=== PATIENT | female | born 1955 | race Caucasian/White ===

== ENCOUNTER 2022-05-18 16:26 | Emergency (ER) | payer MEDICARE, BC, SELFPAY ==
[2022-05-18 16:29] VITALS: BP 156/94; PULSE 81; RESP 14; TEMP 36.8; O2SAT 95; BMI 23.1
[2022-05-18 16:39] VITALS: O2SAT 98
--- NOTE | 2022-05-18 16:42 | CT_ITS ---
EXAM: CT ANGIOGRAPHY CHEST WITHOUT AND WITH INTRAVENOUS CONTRAST CLINICAL INDICATION: dyspnea, elevated d-dimer -- Technologist Notes Shortness of breath, history of endometrial and colon cancer. TECHNIQUE: Helically acquired angiography images were obtained of the chest without and with intravenous contrast. This CT exam was performed using one or more of the following dose reduction techniques: automated exposure control, adjustment of the mA and/or kV according to patient size, and/or use of iterative reconstruction technique. This report was created using [employer] report generation technology. MIP reconstructed images were created and reviewed. CONTRAST: IV 100mL Isovue-370 RADIATION DOSE: CTDIvol = 5.55 mGy, DLP = 188.51 mGy-cm COMPARISON: None. FINDINGS: PULMONARY ARTERIES: No demonstrated pulmonary embolism or arterial dissection. AORTA: Unremarkable. Normal in caliber. No evidence of dissection. GREAT VESSELS OF AORTIC ARCH: Unremarkable. Normal in caliber. No evidence of dissection. LUNGS AND PLEURAL SPACES: Unremarkable. No mass. No consolidation or edema. No pleural effusion or thickening. No pneumothorax. HEART: Unremarkable. Heart size is normal. No pericardial effusion. No signs of right heart strain, ratio of right ventricle to left ventricle measures less than 1. MEDIASTINUM: Unremarkable. No mediastinal or hilar adenopathy. Esophagus is unremarkable. No hiatal hernia. THYROID: Unremarkable. No thyroid lesions. BONES/JOINTS: Unremarkable. No suspicious lytic or blastic abnormality. GALLBLADDER AND BILE DUCTS: The gallbladder is surgically absent. PANCREAS: There is a cystic lesion extending from the region of the left lobe of the liver, extending around the pancreas and stomach. The mass measures 11 x 6 x 5 cm. This is only partially visualized on the CT of the chest and a cystic neoplasm cannot be excluded. Differential would include sequela of pancreatitis. CT/CTA Chest W/WO Contrast IMPRESSION: 1. No demonstrated pulmonary embolism or arterial dissection. 2. There is a cystic lesion extending from the region of the left lobe of the liver, extending around the pancreas and stomach. The mass measures 11 x 6 x 5 cm. This is only partially visualized on the CT of the chest and a cystic neoplasm cannot be excluded. Differential would include sequela of pancreatitis. Electronically Signed: Luis Swift MD at 17:49 EDT ,
--- NOTE | 2022-05-18 16:42 | EKG12_ITS ---
Test Reason : SOB Blood Pressure : / mmHG Vent. Rate : 062 BPM Atrial Rate : 062 BPM P-R Int : 134 ms QRS Dur : 088 ms QT Int : 416 ms P-R-T Axes : 054 -04 037 degrees QTc Int : 422 ms Normal sinus rhythm Normal ECG Confirmed by QUE RIVERO, LINDA ([id number]), newspaper editor managing ROCIO ALDANA ([id number]) on 05/20/2022 11:37:50 AM Referred By: YESSICA Confirmed By:LINDA GREY MD
--- NOTE | 2022-05-18 16:45 | EDS_ITS ---
HPI History of Present Illness Chief Complaint: Shortness of Breath Informant: patient Onset/Context/Timing Onset: Month(s) Timing: Waxes and wanes Current Severity: Mild Maximum Severity: Moderate Narrative Narrative: Patient presents from Dr. Vigil's office for elevated D-dimer. She is a history of endometrial cancer and is currently undergoing treatment. When he saw her today she complained of several month history of shortness of breath when she is raising her arms above her head. Lately she has noted some shortness of breath with exertion as simple as walking. In light of this lab work was obtained including a D-dimer. D-dimer is elevated and she is sent to the ER for a CTA of her chest. [facility] Medical History Colon cancer Endometrial cancer Hypothyroidism PVCs (premature ventricular contractions) Home Medications acetaminophen 325 mg tablet 975 mg PO Q6H 05/18/22 [History Last Taken Unknown] docusate sodium 100 mg capsule (Colace) 100 mg PO DAILY PRN Constipation 05/18/22 [History Last Taken Unknown] ezetimibe 10 mg tablet 10 mg PO DAILY 05/18/22 [History Last Taken Unknown] famotidine 20 mg tablet (Pepcid) 20 mg PO DAILY 05/18/22 [History Last Taken Unknown] lenvatinib 4 mg capsule 14 mg PO DAILY 05/18/22 [History Last Taken Unknown] loratadine 10 mg tablet (Claritin) 10 mg PO DAILY 05/18/22 [History Last Taken Unknown] omega-3 fatty acids-fish oil 684 mg-1,200 mg capsule,delayed release 1 cap PO DAILY 05/18/22 [History Last Taken Unknown] thyroid (pork) 90 mg tablet (PLANETARIUM TECHNICIAN Thyroid) 90 mg PO DAILY 05/18/22 [History Last Taken Unknown] Allergy/AdvReac Type Severity Reaction Status Date / Time azithromycin AdvReac Nausea/Vom/ Verified 05/18/22 16:29 Diarrhea Vvjtuhe-FHF-YtO Reductase AdvReac Other Verified 05/18/22 16:29 Inhibitor Social History Smoking Status: Never smoker ROS ROS ED Constitutional Constitutional ED: Denies chills or fever(s) Eyes Eyes: Denies change in vision or discharge from eye(s) ENT ENT ED: Denies discharge from eye(s), rhinorrhea or sore throat Cardiovascular Cardiovascular: Denies chest pain or palpitations Respiratory/Chest Respiratory/Chest: Reports dyspnea; Denies cough Gastrointestinal Gastrointestinal: Denies abdominal pain, diarrhea, nausea or vomiting Genitourinary Genitourinary ED: Denies difficulty urinating or dysuria Musculoskeletal Musculoskeletal: Denies back pain or extremity pain Integumentary Denies Abrasions or rash Neurologic Neurologic: Denies headache(s) or weakness Allergic/Immunologic Allergic/Immunologic ED: Denies lip swelling or urticaria EXAM Physical Exam Const Vital Signs: 05/18/22 16:29 05/18/22 16:39 Temperature 98.2 F Temperature Source Temporal Pulse Rate 81 Respiratory Rate 14 Respiratory Effort Short of Breath Respiratory Depth Normal Respiratory Pattern Normal Blood Pressure 156/94 H Blood Pressure Mean 114 Pulse Ox 95 Oxygen Delivery Method Room Air Room Air Positive well nourished and well developed General Appearance ED: well developed HEENT Reports normocephalic and head/scalp atraumatic Eyes PERRL and EOMs intact bilaterally Neck supple Chest Wall inspection of chest normal and palpation of chest normal Resp normal respiratory effort and clear to auscultation bilaterally Cardio regular rate and regular rhythm GI normal to inspection, nondistended, normoactive bowel sounds Palpation: soft Extremity normal to inspection Neuro oriented x3 and no sensory deficits noted Sensorium / Orientation: alert Motor Exam: strength 5/5 throughout Psych mental status grossly normal Skin no rashes or lesions noted MDM MDM MDM Narrative Medical decision making narrative: Patient's lab work from [facility] is reviewed. BNP and troponin are added along with an EKG. CTA of the chest is ordered. Lab Data Attestation: I reviewed the patient's lab results. Labs: Laboratory Results - last 24 hr 05/18/22 05/18/22 16:54 16:54 Troponin I High Sens 6 B-Natriuretic Peptide 25.9 Radiography Diagnostic Testing: Clinical Impression(s) from Imaging Studies Chest CTA 05/18/22 16:42 IMPRESSION: 1. No demonstrated pulmonary embolism or arterial dissection. 2. There is a cystic lesion extending from the region of the left lobe of the liver, extending around the pancreas and stomach. The mass measures 11 x 6 x 5 cm. This is only partially visualized on the CT of the chest and a cystic neoplasm cannot be excluded. Differential would include sequela of pancreatitis. Electronically Signed: Luis Swift MD at 17:49 EDT , EKG Initial EKG: Attestation: I personally reviewed and interpreted this EKG as follows: Interpretation: Sinus Rhythm (Sinus at 62 with no acute ischemia.) Treatment and Re-Evaluation Narrative: Repeat evaluation patient resting comfortably. Vitals are normal. Test results discussed with her and at bedside. She will be discharged home to [facility]. Follow-up with Dr. Vigil as scheduled. Discharge Plan Triage Chief Complaint: Shortness of Breath ED Provider: Heather Alexandra Dx/Rx/DC Orders Clinical Impression: Dyspnea Instructions: ED Dyspnea Prescriptions: No Action acetaminophen 325 mg Tablet 975 mg PO Q6H famotidine [Pepcid] 20 mg Tablet 20 mg PO DAILY docusate sodium [Colace] 100 mg Capsule 100 mg PO DAILY PRN (Reason: Constipation) loratadine [Claritin] 10 mg Tablet 10 mg PO DAILY ezetimibe 10 mg Tablet 10 mg PO DAILY [place] 3 Fish Oil 684-1,200 mg Capsule,Delayed Release(Dr/Ec) 1 cap PO DAILY thyroid (pork) [PLANETARIUM TECHNICIAN Thyroid] 90 mg Tablet 90 mg PO DAILY lenvatinib 4 mg Capsule 14 mg PO DAILY Primary Care Provider: Iggy Lutz Referrals: Jame Vigil DO [STAFF PHYSICIAN] - Keep Sravan appointment Iggy Lutz [Primary Care Provider] - Disposition Disposition: Home, Self Care
--- NOTE | 2022-05-18 16:49 | NURSING ---
NO OLD EKGS
[2022-05-18 17:16] LABS: BNP,B-Type NATRIURETIC PEPTIDE 25.9 pg/mL (0-100)
[2022-05-18 17:18] LABS: Troponin-I HS 6 pg/mL (3.0-54.0)
== END 2022-05-18 18:26 | disposition home or self-care (01) ==
PROVIDERS: Emergency Provider Emergency Medicine; PCP Family Medicine; Visit Provider Emergency Medicine
DX: R06.00 Dyspnea, unspecified (principal); E03.9 Hypothyroidism, unspecified; Z79.899 Other long term (current) drug therapy
CPT/HCPCS: 36591; 71275; 83880; 84484; 93005; 99283; Q9967; A4216

== ENCOUNTER → 2022-07-11 | Outpatient (CLI) | payer MEDICARE, BC, SELFPAY ==
--- NOTE | 2022-07-11 10:11 | US_ITS ---
INDICATION: ASCITES EXAMINATION: Ultrasound US Abdomen Limited (quadrant) TECHNIQUE: Luna scale imaging with graded compression and color doppler was obtained of the right lower quadrant. COMPARISON: CTA chest from 05/18/2022 FINDINGS: All 4 quadrants of the abdomen were first assessed for ascites for patient scheduled paracentesis. There was no ascites fluid and a paracentesis was not performed. There is a 11.0 x 8.6 x 3.9 cm cystic area/fluid collection superolateral to the pancreas in the gastrohepatic space which corresponds to the finding seen on recent CT chest study. US/Abdomen Limited IMPRESSION: 1. No significant ascites fluid for drainage. Paracentesis not performed today. 2. Redemonstration of a cystic area/fluid collection in the gastrohepatic space which was also seen on recent CT chest study from 05/18/2022. Given patient''s history of endometrial cancer this could represent metastatic or cystic lesion. This could also relate to loculated ascites or pseudocyst. However, findings are incompletely assessed on this ultrasound and the imaging available at this facility. Further assessment and comparison with outside imaging is recommended prior to intervention. Electronically Signed: Israel Lutz, at 13:36 EDT ,
== END | disposition home or self-care (01) ==
PROVIDERS: PCP Family Medicine; Referring Provider Internal Medicine Hematology & Oncology; Visit Provider Internal Medicine Hematology & Oncology
DX: R18.8 Other ascites (principal); C56.9 Malignant neoplasm of unspecified ovary
CPT/HCPCS: 76705

== ENCOUNTER 2023-03-17 17:48 | Emergency (ER) | payer MEDICARE, SELFPAY ==
[2023-03-17 17:50] VITALS: BP 145/92; PULSE 123; RESP 16; TEMP 36.1; O2SAT 97; BMI 20.1
--- NOTE | 2023-03-17 18:35 | EX.ED.DYSGE1 ---
HPI History of Present Illness Chief Complaint: Shortness of Breath Informant: patient Narrative Narrative: Sent in here from oncology service for evaluation of right lower chest wall pain. History of metastatic endometrial cancer since 2019 metastasis to the liver followed by Dr. Vigil. She states she had a upper and lower endoscopy 9 days ago at [facility] Dr. Paredes. The following day new chemotherapy of Enhertu was started. Was doing well Monday night states she turned she felt a pop and pain in the right lower ribs. She is a history of nontraumatic fractures in the past. Symptoms worsening over last 2 days causing dyspnea. Coordination with oncology sent here for image studies also rule any pleural effusions with her new therapy. She denies fevers. Pain worse with laying on either side, improved with sitting upright. Prior similar symptoms: Yes PFSH PFSH Medical History Colon cancer Endometrial cancer Hypothyroidism PVCs (premature ventricular contractions) Home Medications acetaminophen 325 mg tablet 975 mg PO Q6H 05/18/22 [History Last Taken Unknown] docusate sodium 100 mg capsule (Colace) 100 mg PO DAILY PRN Constipation 05/18/22 [History Last Taken Unknown] ezetimibe 10 mg tablet 10 mg PO DAILY 05/18/22 [History Last Taken Unknown] famotidine 20 mg tablet (Pepcid) 20 mg PO DAILY 05/18/22 [History Last Taken Unknown] lenvatinib 4 mg capsule 14 mg PO DAILY 05/18/22 [History Last Taken Unknown] loratadine 10 mg tablet (Claritin) 10 mg PO DAILY 05/18/22 [History Last Taken Unknown] omega-3 fatty acids-fish oil 684 mg-1,200 mg capsule,delayed release 1 cap PO DAILY 05/18/22 [History Last Taken Unknown] thyroid (pork) 90 mg tablet (AIR TUBE RELEASER Thyroid) 90 mg PO DAILY 05/18/22 [History Last Taken Unknown] Allergy/AdvReac Type Severity Reaction Status Date / Time azithromycin AdvReac Nausea/Vom/ Verified 03/17/23 17:52 Diarrhea Ssehcio-JXU-YcM Reductase AdvReac Other Verified 03/17/23 17:52 Inhibitor Social History Smoking Status: Never smoker ROS ROS ED Constitutional Constitutional ED: Denies chills, fever(s) or sweats Eyes Eyes: Denies change in vision ENT ENT ED: Denies dysphagia or sore throat Cardiovascular Cardiovascular: Reports other Details: Chest wall pain ; Denies chest pain, leg edema, palpitations or racing heartbeat Respiratory/Chest Respiratory/Chest: Reports dyspnea; Denies cough or dyspnea on exertion Gastrointestinal Gastrointestinal: Denies abdominal pain, diarrhea, nausea or vomiting Genitourinary Genitourinary ED: Denies dysuria, hematuria or urinary frequency Musculoskeletal Musculoskeletal: Denies back pain, extremity pain or neck pain Integumentary Denies rash or wounds Neurologic Neurologic: Denies headache(s), paresthesias or weakness EXAM Physical Exam Const Vital Signs: 03/17/23 17:50 03/17/23 18:26 03/17/23 19:12 Temperature 97.0 F L 98.5 F Temperature Source Temporal Temporal Pulse Rate 123 H Respiratory Rate 16 Respiratory Effort Normal Non-Labored Respiratory Depth Normal Respiratory Pattern Normal Blood Pressure 145/92 H Blood Pressure Mean 109 Pulse Ox 97 Oxygen Delivery Method Room Air 03/17/23 20:29 Temperature Temperature Source Pulse Rate 82 Respiratory Rate Respiratory Effort Respiratory Depth Respiratory Pattern Blood Pressure Blood Pressure Mean Pulse Ox 96 Oxygen Delivery Method Positive well nourished and well developed General Appearance ED: well developed and NAD HEENT Reports moist mucous membranes normocephalic and atraumatic Eyes PERRL, EOMs intact bilaterally and conjunctivae normal General Eye ED: Yes normal appearance of both eyes Neck no lymphadenopathy and supple General: Negative for tenderness Chest Wall Chest Narrative: Tender right lower ribs under breast, there is no crepitus no ecchymosis. Symmetric breath sounds. Chest: Negative for tenderness Resp normal respiratory effort Resp Narrative: Diminished breath sounds right lower lobe Effort and Inspection: symmetric chest movement; Negative for respiratory distress Cardio regular rate, regular rhythm and no murmurs Peripheral Pulses: pulses 2+ throughout GI normal to inspection, nondistended, normoactive bowel sounds and non-tender Palpation: Negative for guarding or rebound tenderness present Back/Spine no CVA tenderness and no thoracic nor lumbar tenderness Extremity normal to inspection General Extremety ED: Negative for edema or tenderness General Extremity: Negative for edema Neuro oriented x3 and no sensory deficits noted Sensorium / Orientation: awake and alert Skin no rashes or lesions noted and no wounds MDM MDM MDM Narrative Medical decision making narrative: Interventions / MDM: Differential diagnosis: Rib fractures, rib strain, pleural effusion, Diagnosis considered but do not suspect: N/A My EKG interpretation: N/A Imaging independently reviewed and interpreted by myself: Noncontrast CT chest, no rib fractures right pleural effusion moderate proximal one third of the lung. External documents reviewed: N/A Test considered but not ordered:N/A ED course: Patient reports pain with movement started 3 days worsening causing dyspnea. History nontraumatic rib fractures in the past. Declined any pain medicines. Noncontrast CT scan neck refracture over noted moderate right pleural effusion. She is not hypoxic in no respiratory distress. Heart rate was tachycardic in triage however improved without any intervention. I did reach out discussed with her oncologist Dr. Vigil discussed findings, without hypoxia or tachypnea, no indication for emergent thoracentesis currently. Also it is currently Monday, no interventional list over the weekend. Patient does not require admission at this time. He will coordinate outpatient thoracentesis as needed. Strict return precautions discussed with patient and significant other. All questions were answered. Re-evaluation: stable Disposition discussed with patient/family/significant other: Patient and significant other Case discussed with consulting clinician: Oncology, Dr. Vigil Radiography Diagnostic Testing: Clinical Impression(s) from Imaging Studies Chest CT 03/17/23 18:52 IMPRESSION: Large right pleural effusion and compressive atelectasis right lower lobe. Persistent cystic mass in the gastrohepatic ligament which has decreased in size since previous study but new cystic mass pancreas possibly metastatic. Recommend clinical correlation and follow-up studies Electronically Signed: Jerald Morgan MD at 19:14 EDT Reading Location ID and State: [facility] / [place] , Service support , Discharge Plan Triage Chief Complaint: Shortness of Breath ED Provider: Willi Al Dx/Rx/DC Orders Clinical Impression: Pleural effusion, right, Endometrial cancer Instructions: Pleural Effusion Prescriptions: No Action acetaminophen 325 mg Tablet 975 mg PO Q6H famotidine [Pepcid] 20 mg Tablet 20 mg PO DAILY docusate sodium [Colace] 100 mg Capsule 100 mg PO DAILY PRN (Reason: Constipation) loratadine [Claritin] 10 mg Tablet 10 mg PO DAILY ezetimibe 10 mg Tablet 10 mg PO DAILY [place] 3 Fish Oil 684-1,200 mg Capsule,Delayed Release(Dr/Ec) 1 cap PO DAILY thyroid (pork) [AIR TUBE RELEASER Thyroid] 90 mg Tablet 90 mg PO DAILY lenvatinib 4 mg Capsule 14 mg PO DAILY Primary Care Provider: Pee Solorio Referrals: Jame Vigil DO [Med Staff - Active Staff] - 3-5 Days Pee Solorio MD [Primary Care Provider] - Activity Restrictions/Additional Instructions: Dr. Vigil aware, CT scan no fracture the bone there is pleural effusion the right side. We will coordinate fluid removal as an outpatient next week. Return if worsening respiratory symptoms. Disposition Disposition: Home, Self Care Discharge Date/Time: 03/17/23 20:29
--- NOTE | 2023-03-17 18:52 | CT_ITS ---
INDICATION: right lower chest wall pain -- hx rib fx EXAMINATION: CT CHEST WITHOUT CONTRAST - CT Chest W/O Contrast Injection TECHNIQUE: Helically acquired images were obtained of the chest. A radiation dose optimization technique was used for this scan. IV Contrast dosage and agent: None. COMPARISON: None. FINDINGS: LUNGS, PLEURA AND LARGE AIRWAYS: There is mild calcific plaquing hemidiaphragm There is a large right pleural effusion and compressive atelectasis in the right lower lobe. No pneumothorax. THYROID: No thyroid lesions. HEART AND PERICARDIUM: Heart size is normal. No pericardial effusion. CORONARY ARTERIES: Coronary artery calcification VESSELS: Minor atherosclerotic changes of the aorta without evidence for aneurysm. MEDIASTINUM AND ALEJANDRO: No mediastinal or hilar adenopathy. Esophagus is unremarkable. No hiatal hernia. UPPER ABDOMEN: Gallbladder has been removed surgically. There is a large cystic mass in the left upper quadrant which appears to be within the gastrohepatic ligament and has decreased in size since previous study however there is a new cystic lesion in the left lobe of the liver. BONES: Dorsal spine demonstrates minor change No suspicious lytic or blastic abnormality. CT/Chest without Contrast IMPRESSION: Large right pleural effusion and compressive atelectasis right lower lobe. Persistent cystic mass in the gastrohepatic ligament which has decreased in size since previous study but new cystic mass pancreas possibly metastatic. Recommend clinical correlation and follow-up studies Electronically Signed: Jerald Morgan MD at 19:14 EDT ,
[2023-03-17 19:12] VITALS: TEMP 36.9
[2023-03-17 20:29] VITALS: PULSE 82; O2SAT 96
== END 2023-03-17 20:29 | disposition home or self-care (01) ==
PROVIDERS: Emergency Provider Emergency Medicine; PCP Internal Medicine; Visit Provider Emergency Medicine
DX: J90 Pleural effusion, not elsewhere classified (principal); C78.7 Secondary malignant neoplasm of liver and intrahepatic bile duct; C54.1 Malignant neoplasm of endometrium
CPT/HCPCS: 36591; 71250; 99284; A4216

== ENCOUNTER 2024-06-18 20:43 | Inpatient (IN) | payer MEDICARE, SELFPAY ==
[2024-06-18 20:45] VITALS: BP 131/67; PULSE 99; RESP 18; TEMP 37.6; O2SAT 95; BMI 21.0
[2024-06-18 20:57] VITALS: BP 138/72; PULSE 95; RESP 19; TEMP 37.4; O2SAT 96
--- NOTE | 2024-06-18 21:26 | CT_ITS ---
INDICATION: gi bleed EXAMINATION: CT Abdomen And Pelvis W/ Contrast Injection TECHNIQUE: Helically acquired images were obtained of the abdomen and pelvis with sagittal and coronal reconstructed images. Individualized dose optimization techniques were used for this CT. IV contrast dosage and agent: 100 mL of Isovue-370. Oral contrast: None. COMPARISON: 03/17/2023 CT chest. FINDINGS: VESSELS: No abdominal aortic aneurysm or dissection. LIVER: Low-density masses within the left lobe of the liver, increased as compared to the prior CT. Again seen is a mass in the gastrohepatic region. No intrahepatic or extrahepatic biliary duct dilation. GALLBLADDER: Status post cholecystectomy. PANCREAS: No focal solid or cystic mass. No evidence of pancreatitis. SPLEEN: Splenomegaly. ADRENAL GLANDS: Normal. KIDNEYS AND URETERS: No urinary tract stone. No hydronephrosis or hydroureter. No significant asymmetric perinephric stranding. Simple bilateral renal cysts with no follow-up recommended. URINARY BLADDER: Unremarkable. BOWEL: No evidence of diverticulosis or diverticulitis. Appendix not identified. No evidence of bowel obstruction. Diffuse thickening of small bowel and distal colon. REPRODUCTIVE ORGANS: No evidence of a pelvic mass. PERITONEUM: No intraabdominal free fluid or free air. Diffuse mesenteric stranding. LYMPH NODES: No pathologically enlarged mesenteric or retroperitoneal lymph nodes. ABDOMINAL WALL: Left inguinal hernia containing small bowel with no bowel obstruction. BONES: No acute abnormality. LOWER CHEST: Loculated right pleural effusion with a chest tube in place. CT/Abdomen/Pelvis W IV Cont ONLY IMPRESSION: 1. Mass within the gastrohepatic region increased in size as compared to the prior CT. 2. Liver masses in the left lobe of the liver also increased as compared to the prior CT. 3. Diffuse thickening of small bowel and distal colon and diffuse mesenteric stranding which may represent enteritis/colitis. 4. No evidence of a gastrointestinal bleed. 5. Loculated right pleural effusion. 6. Left inguinal hernia containing small bowel with no bowel obstruction. 7. Splenomegaly. Electronically Signed: Jerald Manzanares DO at 23:05 EDT ,
--- NOTE | 2024-06-18 21:37 | ED.VIS.GI ---
HPI HPI - GI History of Present Illness Chief Complaint: GI Bleed Narrative Narrative: 68-year-old female with history of metastatic endometrial cancer presenting with abdominal pain, lower GI bleeding. She states she had some rectal blood today. She states she has had this in the past. He has not been this severe. She is currently on Eliquis. Last chemotherapy was last . Patient thought she had a fever at home of 101 however she did not take any analgesia as she arrives without a fever. She does not have chills or bodyaches. No nausea or vomiting. She states her abdominal pain is resolved. [facility] Medical History Hypothyroidism PVCs (premature ventricular contractions) Colon cancer Endometrial cancer Home Medications ?Medication ?Instructions ?Recorded ?Last Taken ?Type acetaminophen 325 mg tablet 975 mg PO Q6H 05/18/22 Unknown History docusate sodium 100 mg capsule 100 mg PO DAILY PRN Constipation 05/18/22 Unknown History (Colace) ezetimibe 10 mg tablet 10 mg PO DAILY 05/18/22 Unknown History famotidine 20 mg tablet (Pepcid) 20 mg PO DAILY 05/18/22 Unknown History lenvatinib 4 mg capsule 14 mg PO DAILY 05/18/22 Unknown History loratadine 10 mg tablet (Claritin) 10 mg PO DAILY 05/18/22 Unknown History omega-3 fatty acids-fish oil 684 1 cap PO DAILY 05/18/22 Unknown History mg-1,200 mg capsule,delayed release thyroid (pork) 90 mg tablet (REED REPAIRER 90 mg PO DAILY 05/18/22 Unknown History Thyroid) Allergy/AdvReac Type Severity Reaction Status Date / Time azithromycin AdvReac Nausea/Vom/ Verified 06/18/24 20:44 Diarrhea Vyrwpih-XAN-UaB Reductase AdvReac Other Verified 06/18/24 20:44 Inhibitor Social History Smoking Status: Never smoker ROS ROS ED Constitutional Constitutional ED: Reports fever(s); Denies chills or sweats Eyes Eyes: Denies blurry vision or change in vision ENT ENT ED: Denies ear pain or sore throat Cardiovascular Cardiovascular: Denies chest pain, palpitations or racing heartbeat Respiratory/Chest Respiratory/Chest: Denies cough, dyspnea or sputum Gastrointestinal Gastrointestinal: Reports abdominal pain and other Details: Bright red blood per rectum ; Denies constipation, diarrhea, nausea or vomiting Genitourinary Genitourinary ED: Denies dysuria, hematuria or urinary frequency Musculoskeletal Musculoskeletal: Denies arthralgias, myalgias or neck pain Integumentary Denies abscess, Abrasions or rash Neurologic Neurologic: Denies headache(s), paresthesias or weakness Psychiatric Psychiatric: Denies anxiety, depression, suicidal ideation or suicidal thoughts Endocrine Endocrinology: Denies polydipsia or polyuria EXAM Physical Exam Const Vital Signs: 06/18/24 20:45 06/18/24 20:57 06/18/24 21:49 Temperature 99.7 F H 99.3 F H 98.3 F Temperature Source Temporal Oral Oral Pulse Rate 99 95 85 Respiratory Rate 18 19 H 19 H Blood Pressure 131/67 H 138/72 H 100/65 Blood Pressure Mean 88 94 76 Pulse Ox 95 96 99 Oxygen Delivery Method Room Air Room Air Room Air 06/18/24 22:00 06/18/24 23:00 Temperature 98.3 F 98.3 F Temperature Source Oral Oral Pulse Rate 86 86 Respiratory Rate 19 H 19 H Blood Pressure 110/61 106/60 Blood Pressure Mean 77 75 Pulse Ox 97 99 Oxygen Delivery Method Room Air Room Air Positive well nourished and well developed General Appearance ED: well developed; Negative for pallor HEENT Reports moist mucous membranes normocephalic and atraumatic Eyes PERRL and EOMs intact bilaterally Resp normal respiratory effort Auscultation: Negative for rales, rhonchi or wheezes Cardio regular rate and regular rhythm GI non-tender and non-distended Neuro CN's II-XII intact bilaterally Sensorium / Orientation: alert Motor Exam: strength 5/5 throughout Psych mental status grossly normal and thought process normal Skin no wounds General Skin Exam: Negative for jaundice or pallor MDM MDM MDM Narrative Medical decision making narrative: 68-year-old female presenting with GI bleeding and lower abdominal pain. She thought she had a fever at home but she is afebrile here and has not taken anything for this. Patient is on chemotherapy for metastatic endometrial cancer and history of colon cancer. She sees Dr. Vigil. Differential includes patient presenting with right flank pain. Differential includes colitis, diverticulitis, gastritis, pancreatitis, constipation, UTI, pyelonephritis, renal calculi, ureteral calculi, bowel obstruction, malignancy, dehydration, electrolyte abnormalities. CBC will be obtained to assess white blood cell count, hemoglobin, platelets. CMP to assess renal function, electrolytes, liver function, glucose. Lipase to assess for pancreatitis. Urinalysis to assess for UTI. BC shows a white blood cell count of 6.4. Hemoglobin 9.5. Last hemoglobin was 10.0 on 06/12/2024 which was roughly 6 days ago. BMP shows normal renal function, electrolytes normal except potassium 3.4. Bilirubin 0, AST slightly elevated 40, ALT 26, alk phosphatase 153. Lipase slightly elevated at 101. Patient does have liver mets and her last CT showed involvement of the pancreas as well. CT of the abdomen pelvis shows a mass within the gastrohepatic region increased in size to in comparison to previous CT. There is also liver masses in the left lobe of the liver which were also increased in size. Diffuse thickening of the small bowel and distal colon and diffuse mesenteric stranding which may represent enterocolitis or colitis. Previously noted pleural effusion which patient has a chest tube in. Patient gets her care through [facility] and referred to go to [place] or [facility] given that she has a GI bleed on Eliquis. I do not believe she needs a blood transfusion currently. Will discuss with the transfer line. Spoke with the transfer line however have not heard back. Patient will be signed out to the incoming ED physician for monitoring. Impression: 1. Gi bleed 2. Abdominal Pain 3. Worsening metastatic cancer Lab Data Attestation: I reviewed the patient's lab results. Labs: Laboratory Results - last 24 hr 06/18/24 21:48 WBC 6.4 RBC 2.52 L Hgb 8.5 L Hct 25.5 L MCV 101.2 H MCH 33.7 H MCHC 33.3 RDW Std Deviation 64.4 H RDW Coeff of Beatrice 17.3 H Plt Count 163 MPV 10.2 Immature Gran % (Auto) 0.500 Neut % (Auto) 78.7 H Lymph % (Auto) 12.5 L [place] % (Auto) 4.7 Eos % (Auto) 3.1 Baso % (Auto) 0.5 Absolute Neuts (auto) 5.0 Absolute Lymphs (auto) 0.80 L Nucleated RBC % 0 Sodium 138 Potassium 3.4 L Chloride 108 H Carbon Dioxide 22.0 Anion Gap 8 BUN 17 Creatinine 0.88 Estim Creat Clear Calc 55.06 Est GFR (MDRD) Af Amer 82 Est GFR (MDRD) Non-Af 68 BUN/Creatinine Ratio 19.4 Glucose 118 H Calcium 8.4 L Total Bilirubin 0.80 Direct Bilirubin 0.28 AST 40 H ALT 26 Alkaline Phosphatase 153 H Total Protein 5.5 L Albumin 2.4 L Globulin 3.1 Lipase 101 H Radiography Diagnostic Testing: Clinical Impression(s) from Imaging Studies Abdomen/Pelvis CT 06/18/24 21:26 IMPRESSION: 1. Mass within the gastrohepatic region increased in size as compared to the prior CT. 2. Liver masses in the left lobe of the liver also increased as compared to the prior CT. 3. Diffuse thickening of small bowel and distal colon and diffuse mesenteric stranding which may represent enteritis/colitis. 4. No evidence of a gastrointestinal bleed. 5. Loculated right pleural effusion. 6. Left inguinal hernia containing small bowel with no bowel obstruction. 7. Splenomegaly. Electronically Signed: Jerald Manzanares DO at 23:05 EDT , Discharge Plan Triage Chief Complaint: GI Bleed Other Complaint: Fever ED Provider: Ezio Frey Dx/Rx/DC Orders Prescriptions: No Action acetaminophen 325 mg Tablet 975 mg PO Q6H famotidine [Pepcid] 20 mg Tablet 20 mg PO DAILY docusate sodium [Colace] 100 mg Capsule 100 mg PO DAILY PRN (Reason: Constipation) loratadine [Claritin] 10 mg Tablet 10 mg PO DAILY ezetimibe 10 mg Tablet 10 mg PO DAILY [place] 3 Fish Oil 684-1,200 mg Capsule,Delayed Release(Dr/Ec) 1 cap PO DAILY thyroid (pork) [REED REPAIRER Thyroid] 90 mg Tablet 90 mg PO DAILY lenvatinib 4 mg Capsule 14 mg PO DAILY Primary Care Provider: Pee Solorio Referrals: Pee Solorio MD [Primary Care Provider] - Print Language: Indonesian
[2024-06-18 21:49] VITALS: BP 100/65; PULSE 85; RESP 19; TEMP 36.8; O2SAT 99
[2024-06-18] MEDS: 0.9% Normal Saline (1000mL) 1,000 ML 999 ML IV (21:50)
[2024-06-18 21:55] LABS: Basophil# 0.03 X10^3/uL; Basophil% 0.5 % (0-1); Eosinophils% 3.1 % (0-5); Hematocrit 25.5 % (37-47); Hemoglobin 8.5 g/dL (12.0-15.0); Lymphocyte % 12.5 % (19-41); Mean Corp Hgb Conc 33.3 g/dL (32-36); Mean Corpuscular Hgb 33.7 pg (27.0-32.0); Mean Corpuscular Volume 101.2 fL (81-99); Mean Platelet Vol. 10.2 fl (6.2-12.0); Monocyte% 4.7 % (0-10); NRBC Flagged by Analyzer 0 % (0-5); Neutrophil # 5.04 X10^3/uL (2.7-7.7); Neutrophil % 78.7 % (47-70); Platelet Count 163 K/mm3 (150-450); RBC Distribution Width CV 17.3 % (11.6-14.6); RBC Distribution Width SD 64.4 fl (35.1-43.9); Red Blood Count 2.52 M/mm3 (4.2-5.4); White Blood Count 6.4 K/mm3 (4.4-11.0)
[2024-06-18 22:00] VITALS: BP 110/61; PULSE 86; RESP 19; TEMP 36.8; O2SAT 97
[2024-06-18 22:44] LABS: AST(SGOT) 40 U/L (15-37); Alanine Aminotransfer ALT/SGPT 26 U/L (13-56); Albumin, Serum 2.4 g/dL (3.2-5.0); Alkaline Phosphatase 153 U/L (45-117); Anion Gap 8 (5-15); BUN 17 mg/dL (7-18); BUN/Creat Ratio 19.4 RATIO (10-20); Bilirubin, Direct 0.28 mg/dL (0.00-0.30); Calcium,Total 8.4 mg/dL (8.5-10.1); Chloride 108 mmol/L (98-107); Creatinine, Serum 0.88 mg/dL (0.55-1.02); EST Glomerular Filtration Rate 68 mL/min (>60); Est Glom Filt Rate - Afr Amer 82 mL/min (>60); Estimated Creatinine Clearance 55.06 ml/min; Globulin 3.1 g/dL (2.2-4.2); Glucose 118 mg/dL (74-106); Lipase 101 U/L (13-75); Potassium 3.4 mmol/L (3.5-5.1); Protein, Total 5.5 g/dL (6.4-8.2); Sodium Level 138 mmol/L (136-145)
[2024-06-18 23:00] VITALS: BP 106/60; PULSE 86; RESP 19; TEMP 36.8; O2SAT 99
[2024-06-18 23:35] LABS: Bacteria 0 SEEN /hpf (None Seen); Mucous, Urine 0 SEEN /hpf (<or=2+); Red Blood Cells-Urine 0 SEEN /hpf (0-5); White Blood Cells 0 SEEN /hpf (0-5)
[2024-06-18 23:41] LABS: Color, Urine Yellow (Yellow); Glucose, Dipstick Normal (Normal); Ketone-Dipstick 5 mg/dl (Negative); Leukocyte Esterase-Dipstick Negative /ul (Negative); Nitrite-Dipstick Negative (Negative); Occult Blood-Urine Negative /ul (Negative); Protein-Dipstick 15 mg/dl (Negative); Urine Bilirubin Dipstick Negative (Negative); Urine Clarity Clear (Clear); Urine Urobilinogen Normal (Normal)
[2024-06-18 23:59] VITALS: BP 118/68; PULSE 79; RESP 18; O2SAT 98
[2024-06-19] VITALS (13 sets, daily range): BP systolic 106–121; BP diastolic 64–76; PULSE 72–93; RESP 16–25; TEMP 36.7–37.1; O2SAT 93–98; BMI 20.8
[2024-06-19 00:04] LABS: Squamous Epithelial Cells - UA 0-5 SEEN /hpf (5-10)
[2024-06-19] MEDS: 0.9% Normal Saline (1000mL) 1,000 ML 125 ML IV ×3 (03:00→18:44)
--- NOTE | 2024-06-19 07:11 | HP.PCM.HOS_ITS ---
[facility] - General General Date of Admission: 06/19/24 Date of Service: 06/19/24 Chief Complaint: Bleeding per rectum HPI Narrative ASHLEY NEWTON, is a 68 F who presents who presents with bleeding per rectum. Patient has significant past medical history including endometrial cancer currently undergoing chemotherapy per patient he did notice blood in her stool a day prior to her admission. She denied any abdominal pain no nausea no vomiting. Patient is on apixaban for catheter associated blood clots. Given patient complicated past medical history arrangements were initiated from the ED to have patient transferred to [facility] bed was however not available. Patient was therefore made to admit patient pending transfer. Of note patient has history of colon cancer almost 30 years ago for which she underwent colon resection with no chemo. [facility] Medical History Hypothyroidism PVCs (premature ventricular contractions) Colon cancer Endometrial cancer Home Medications ?Medication ?Instructions ?Recorded ?Last Taken ?Type acetaminophen 325 mg tablet 975 mg PO Q6H 05/18/22 Unknown History docusate sodium 100 mg capsule 100 mg PO DAILY PRN Constipation 05/18/22 Unknown History (Colace) ezetimibe 10 mg tablet 10 mg PO DAILY 05/18/22 Unknown History loratadine 10 mg tablet (Claritin) 10 mg PO DAILY 05/18/22 Unknown History thyroid (pork) 90 mg tablet (UNIFIED COMMUNICATIONS ARCHITECT 90 mg PO DAILY 05/18/22 Unknown History Thyroid) apixaban 5 mg tablet (Eliquis) 5 mg PO BID 06/19/24 Unknown History cholecalciferol (vitamin D3) 25 1,000 unit PO DAILY 06/19/24 Unknown History mcg (1,000 unit) chewable tablet (Vitamin D3) omeprazole 20 mg capsule,delayed 20 mg PO DAILY 06/19/24 Unknown History release potassium chloride 20 mEq 20 meq PO BID 06/19/24 Unknown History tablet,extended release(part/cryst) thyroid (pork) 60 mg tablet 60 mg PO .[facility] 06/19/24 Unknown History ([place] Thyroid) Allergy/AdvReac Type Severity Reaction Status Date / Time azithromycin AdvReac Nausea/Vom/ Verified 06/19/24 07:23 Diarrhea Abwtqrm-EKV-IzB Reductase AdvReac Other Verified 06/19/24 07:23 Inhibitor Social History Smoking Status: Never smoker ROS ROS Narrative GENERAL: denies fever, chills, night sweats, weight loss, anorexia HEENT: denies headache, sinus congestion, or drainage, dysphagia RESPIRATORY: denies cough, sputum production, shortness of breath, dyspnea on exertion CARDIAC: denies chest pain, palpitations, orthopnea, PND GASTROINTESTINAL: Hematochezia GENITOURINARY: denies dysuria, urgency, frequency, heamaturia EXTREMITY: denies swelling MUSCULOSKELETAL: denies current joint pain or tenderness NEUROLOGIC: denies focal numbness, weakness, tingling HEMATOLOGIC: denies easy bruising and/or hemorrhage INTEGUMENT: denies rashes PSYCHIATRIC: denies suicidal or homicidal ideation Vital Signs Vital Signs Vital Signs: 06/18/24 20:45 06/18/24 20:57 06/18/24 21:49 Temperature 99.7 F H 99.3 F H 98.3 F Temperature Source Temporal Oral Oral Pulse Rate 99 95 85 Respiratory Rate 18 19 H 19 H Blood Pressure 131/67 H 138/72 H 100/65 Blood Pressure Mean 88 94 76 Pulse Ox 95 96 99 Oxygen Delivery Method Room Air Room Air Room Air 06/18/24 22:00 06/18/24 23:00 06/18/24 23:59 Temperature 98.3 F 98.3 F Temperature Source Oral Oral Pulse Rate 86 86 79 Respiratory Rate 19 H 19 H 18 Blood Pressure 110/61 106/60 118/68 Blood Pressure Mean 77 75 84 Pulse Ox 97 99 98 Oxygen Delivery Method Room Air Room Air Room Air 06/19/24 00:00 06/19/24 01:00 06/19/24 03:00 Temperature 98.2 F 98.3 F Temperature Source Oral Oral Pulse Rate 78 81 76 Respiratory Rate 19 H 25 H 24 H Blood Pressure 118/68 115/66 118/67 Blood Pressure Mean 84 82 84 Pulse Ox 96 96 93 Oxygen Delivery Method Room Air Room Air Room Air 06/19/24 05:00 06/19/24 05:59 06/19/24 06:57 Temperature 98.4 F Temperature Source Oral Pulse Rate 88 84 93 Respiratory Rate 22 H 18 18 Blood Pressure 121/76 H 106/64 108/69 Blood Pressure Mean 91 78 82 Pulse Ox 98 98 93 Oxygen Delivery Method Room Air Room Air Room Air Weight Weight: 57.379 kg Body Mass Index (BMI) 21.0 Physical Exam Narrative GENERAL: cooperative HEENT: Atraumatic; normocephalic EYES; Anicteric, Normal Conjunctiva NECK; supple, normal thyroid, RESPIRATORY: Diminished to auscultation CARDIOVASCULAR: Regular S1 S2, GI: soft, normoactive bowel sounds, : No Renal angle tenderness; EXTREMITIES: No edema, no clubbing, MUSCULOSKELETAL: no muscle wasting NEURO: Awake; no lateralizing signs. SKIN: No Rash PSYCH; Flat affect Results Lab / Micro Data 06/18/24 21:48 06/18/24 21:48 Labs: Laboratory Results - last 24 hr 06/18/24 21:48: WBC 6.4, RBC 2.52 L, Hgb 8.5 L, Hct 25.5 L, MCV 101.2 H, MCH 33.7 H, MCHC 33.3, RDW Std Deviation 64.4 H, RDW Coeff of Beatrice 17.3 H, Plt Count 163, MPV 10.2, Immature Gran % (Auto) 0.500, Neut % (Auto) 78.7 H, Lymph % (Auto) 12.5 L, [place] % (Auto) 4.7, Eos % (Auto) 3.1, Baso % (Auto) 0.5, Absolute Neuts (auto) 5.0, Absolute Lymphs (auto) 0.80 L, Nucleated RBC % 0, Sodium 138, Potassium 3.4 L, Chloride 108 H, Carbon Dioxide 22.0, Anion Gap 8, BUN 17, Creatinine 0.88, Estim Creat Clear Calc 55.06, Est GFR (MDRD) Af Amer 82, Est GFR (MDRD) Non-Af 68, BUN/Creatinine Ratio 19.4, Glucose 118 H, Calcium 8.4 L, Total Bilirubin 0.80, Direct Bilirubin 0.28, AST 40 H, ALT 26, Alkaline Phosphatase 153 H, Total Protein 5.5 L, Albumin 2.4 L, Globulin 3.1, Lipase 101 H 06/18/24 23:30: Urine Color Yellow, Urine Clarity Clear, Urine pH 5.0, Ur Specific [place] 1.010, Urine Protein 15 H, Urine Glucose (UA) Normal, Urine Ketones 5 H, Urine Occult Blood Negative, Urine Nitrite Negative, Urine Bilirubin Negative, Urine Urobilinogen Normal, Ur Leukocyte Esterase Negative, Urine RBC 0 SEEN, Urine WBC 0 SEEN, Ur Squamous Epith Cells 0-5 SEEN, Urine Bacteria 0 SEEN, Urine Mucus 0 SEEN Imaging Radiology Impression Abdomen/Pelvis CT 06/18/24 21:26 IMPRESSION: 1. Mass within the gastrohepatic region increased in size as compared to the prior CT. 2. Liver masses in the left lobe of the liver also increased as compared to the prior CT. 3. Diffuse thickening of small bowel and distal colon and diffuse mesenteric stranding which may represent enteritis/colitis. 4. No evidence of a gastrointestinal bleed. 5. Loculated right pleural effusion. 6. Left inguinal hernia containing small bowel with no bowel obstruction. 7. Splenomegaly. Electronically Signed: Jerald Manzanares DO at 23:05 EDT , Assessment & Plan Assessment/Plan (1) Lower GI bleed: PLAN: Plan Patient is a 68-year-old lady with history of endometrial cancer currently on chemo presented with bleeding per rectum 1. Acute lower GI bleed ? Secondary to colitis. Imaging studies obtained in the ED demonstrated Diffuse thickening of small bowel and distal colon and diffuse mesenteric stranding which may represent enteritis/colitis.. Arrangements were made in the ED for patient to be transferred to [facility]. Currently awaiting transfer pending bed availability. In the meantime patient is being monitored with serial H&H with plans to transfuse if patient meets criteria for transfusion 2. Endometrial CA ? Undergoing chemo patient is followed by Dr. Barksdale 3. Catheter associated DVT ? Patient is on apixaban currently being held given her presentation 4. Anemia ? Secondary to anemia of malignancy as well as acute blood loss anemia from patient's GI bleed. Monitoring H&H with plans to transfuse if patient is deemed to be symptomatic or hemoglobin falls below 7 5. Dyslipidemia ? Patient is on Zetia 6. Hypothyroidism ? Patient is on normal thyroid 7. Hypokalemia -Corrected per protocol, repeat labs ordered for monitoring 8. DVT prophylaxis ? Patient on apixaban which is currently being held given her presentation Time spent in the patient's overall evaluation,decision-making process, review of diagnostic data, adjustment of management, discussion with other providers, nursing nursing and ancillary staff involved in patient's care documentation,75 Minutes Advance planning; did discuss with the patient and family regarding advanced directives as well as CODE STATUS. Did explain the various scenarios involved ( FULL CODE, DNR CCA, DNR CCA with no intubation, and DNR CC and what each meant) patient elected to full code with CPR and intubation if warranted. Order was placed. Time spent on discussion 18 minutes. Charges/Coding Multi Select Codes Visit Charges Visit Charges: 95410 Init Hosp Hospitalists' Procedures Procedures: 66231 Advncd Care Plan 30 Min
--- NOTE | 2024-06-19 09:34 | CASEMGMT ---
Insurance review for hospitals In-network with?[facility] group insurance if transfer is recommended is as follows: [facility], Sylvia, DEYA, Rob, [facility], [facility], [facility], [place], [facility] ([facility]), and . Alva Hernandez, Discharge Planning Asst.
--- NOTE | 2024-06-19 09:37 | CASEMGMT ---
During PCU rounds, Dr. Addison states that the plan is to transfer this pt to [facility] Main d/t the pt complicated PMH. KELLEY Calle res habilitation assistant confirms that [facility] is in network with the pt insurance.
[2024-06-19] MEDS: Ezetimibe 10 MG Tablet PO (11:18)
[2024-06-19] MEDS: 0.9% Saline Lock 10 ML Syringe IV (11:18)
[2024-06-19] MEDS: Pantoprazole Sodium 20 MG Tablet PO (11:18)
[2024-06-19] MEDS: Cholecalciferol (VIT D3) 25 MCG TABLET (1,000 UNITS) PO (11:18)
[2024-06-20] MEDS: 0.9% Normal Saline (1000mL) 1,000 ML 125 ML IV ×3 (03:05→20:36)
[2024-06-20 04:21] VITALS: BP 117/72; PULSE 88; RESP 16; TEMP 36.6; O2SAT 95
[2024-06-20] MEDS: Thyroid 60 MG Tablet PO (06:04)
[2024-06-20 06:38] LABS: Absolute Lymphocyte Count 0.67 X10^3/uL (0.83-4.51); Absolute Neutrophil Count 3.7 X10^3/uL (2.0-7.7); Basophil# 0.05 X10^3/uL; Eosinophil# 0.29 X10^3/uL; Eosinophils% 5.8 % (0-5); Hematocrit 24.9 % (37-47); Hemoglobin 8.4 g/dL (12.0-15.0); Lymphocyte # 0.67 X10^3/ul (0.83-4.51); Lymphocyte % 13.3 % (19-41); Mean Corp Hgb Conc 33.7 g/dL (32-36); Mean Corpuscular Hgb 34.3 pg (27.0-32.0); Mean Corpuscular Volume 101.6 fL (81-99); Mean Platelet Vol. 10.5 fl (6.2-12.0); NRBC Flagged by Analyzer 0 % (0-5); Neutrophil % 73.3 % (47-70); Platelet Count 138 K/mm3 (150-450); RBC Distribution Width CV 17.3 % (11.6-14.6); RBC Distribution Width SD 64.1 fl (35.1-43.9); Red Blood Count 2.45 M/mm3 (4.2-5.4)
[2024-06-20 07:00] LABS: Anion Gap 4 (5-15); BUN 8 mg/dL (7-18); BUN/Creat Ratio 10.1 RATIO (10-20); Chloride 113 mmol/L (98-107); Creatinine, Serum 0.79 mg/dL (0.55-1.02); EST Glomerular Filtration Rate 77 mL/min (>60); Est Glom Filt Rate - Afr Amer 93 mL/min (>60); Estimated Creatinine Clearance 60.46 ml/min; Glucose 97 mg/dL (74-106); Magnesium 1.7 mg/dL (1.6-2.6); Potassium 3.1 mmol/L (3.5-5.1); Sodium Level 140 mmol/L (136-145)
[2024-06-20 07:08] LABS: Phosphorus 2.5 mg/dL (2.5-4.9)
[2024-06-20] MEDS: Potassium Chloride Oral Tablet 20 MEQ PO ×2 (08:40→17:15)
[2024-06-20] MEDS: Pantoprazole Sodium 20 MG Tablet PO (08:45)
[2024-06-20] MEDS: Ezetimibe 10 MG Tablet PO (08:45)
[2024-06-20] MEDS: Cholecalciferol (VIT D3) 25 MCG TABLET (1,000 UNITS) PO (08:45)
[2024-06-20 08:47] VITALS: BP 120/73; PULSE 89; RESP 14; TEMP 37.1; O2SAT 91
--- NOTE | 2024-06-20 09:32 | PCM.PN.HOSP ---
Reason for Visit Reason for Visit: Diagnoses Gastrointestinal hemorrhage, unspecified (06/19/24) Subjective Subjective Patient seen transferred to [facility] still pending her hemoglobin levels remain relatively stable Objective Data Objective Data Vital Signs: Vital Signs Temp Pulse Resp BP Pulse Ox O2 Del Method 98.8 F 89 14 120/73 91 Room Air 06/20/24 08:47 06/20/24 08:47 06/20/24 08:47 06/20/24 08:47 06/20/24 08:47 06/20/24 08:47 Oxygen Delivery Method Room Air Weight: 56.9 kg Body Mass Index (BMI) 20.8 Intake & Output: Intake and Output for Last 24 Hours 06/18/24 06/19/24 06/20/24 23:59 23:59 23:59 Intake Total 3407.08 / 3887.08 1540 / 1540 Output Total 1350 / 1350 Balance 2057.08 / 2537.08 1539 / 1539 Lab / Micro Data 06/20/24 06:09 06/20/24 06:09 Labs: Laboratory Results - last 24 hr 06/20/24 06:09: WBC 5.0, RBC 2.45 L, Hgb 8.4 L, Hct 24.9 L, MCV 101.6 H, MCH 34.3 H, MCHC 33.7, RDW Std Deviation 64.1 H, RDW Coeff of Beatrice 17.3 H, Plt Count 138 L, MPV 10.5, Immature Gran % (Auto) 0.600, Neut % (Auto) 73.3 H, Lymph % (Auto) 13.3 L, [place] % (Auto) 6.0, Eos % (Auto) 5.8 H, Baso % (Auto) 1.0, Absolute Neuts (auto) 3.7, Absolute Lymphs (auto) 0.67 L, Nucleated RBC % 0, Sodium 140, Potassium 3.1 L, Chloride 113 H, Carbon Dioxide 23.0, Anion Gap 4 L, BUN 8, Creatinine 0.79, Estim Creat Clear Calc 60.46, Est GFR (MDRD) Af Amer 93, Est GFR (MDRD) Non-Af 77, BUN/Creatinine Ratio 10.1, Glucose 97, Calcium 8.0 L, Phosphorus 2.5, Magnesium 1.7 Physical Exam Narrative GENERAL: cooperative HEENT: Atraumatic; normocephalic EYES; Anicteric, Normal Conjunctiva NECK; supple, normal thyroid, RESPIRATORY: Diminished to auscultation CARDIOVASCULAR: Regular S1 S2, GI: soft, normoactive bowel sounds, : No Renal angle tenderness; EXTREMITIES: No edema, no clubbing, MUSCULOSKELETAL: no muscle wasting NEURO: Awake; no lateralizing signs. SKIN: No Rash PSYCH; Flat affect Assessment & Plan Assessment/Plan (1) Lower GI bleed: PLAN: Plan Patient is a 68-year-old lady with history of endometrial cancer currently on chemo presented with bleeding per rectum 1. Acute lower GI bleed ? Secondary to colitis. Imaging studies obtained in the ED demonstrated Diffuse thickening of small bowel and distal colon and diffuse mesenteric stranding which may represent enteritis/colitis.. Arrangements were made in the ED for patient to be transferred to [facility]. Currently awaiting transfer pending bed availability. In the meantime patient is being monitored with serial H&H with plans to transfuse if patient meets criteria for transfusion ? 06/20/2024;Patient seen transferred to [facility] still pending her hemoglobin levels remain relatively stable. Consult subsequently placed to Dr. Valdes with GI 2. Endometrial CA ? Undergoing chemo patient is followed by Dr. Barksdale 3. Catheter associated DVT ? Patient is on apixaban currently being held given her presentation 4. Anemia ? Secondary to anemia of malignancy as well as acute blood loss anemia from patient's GI bleed. Monitoring H&H with plans to transfuse if patient is deemed to be symptomatic or hemoglobin falls below 7 ? 06/20/2024; hemoglobin remains relatively stable 5. Dyslipidemia ? Patient is on Zetia 6. Hypothyroidism ? Patient is on normal thyroid 7. Hypokalemia -Corrected per protocol, repeat labs ordered for monitoring 8. DVT prophylaxis ? Patient on apixaban which is currently being held given her presentation Time spent in the patient's overall evaluation,decision-making process, review of diagnostic data, adjustment of management, discussion with other providers, nursing nursing and ancillary staff involved in patient's care documentation, 38 minutes Charges/Coding Visit Charges Inpatient E&M: 14585 Subs Hosp L2
--- NOTE | 2024-06-20 09:38 | CASEMGMT ---
Per admission questions patient does not have a Healthcare Power of Medical Insurance Coder or Healthcare Living Will. Patient is not interested in documents. Sammi DOHERTY
[2024-06-20 11:56] VITALS: BP 107/73; PULSE 86; RESP 14; TEMP 36.6; O2SAT 93
[2024-06-20 17:15] VITALS: BP 102/62; PULSE 85; RESP 14; TEMP 37.1; O2SAT 95
--- NOTE | 2024-06-20 18:33 | EX.PCM.CON.G ---
HPI Consult Data Date of Consult: 06/20/24 HPI Narrative Reason for Consultation: GI bleed HPI Narrative: ASHLEY NEWTON, is a 68 F who presents 68-year-old female with history of metastatic endometrial cancer presenting with abdominal pain, lower GI bleeding. She states she had some rectal blood today. She states she has had this in the past. He has not been this severe. She is currently on Eliquis. Last chemotherapy was last . Patient thought she had a fever at home of 101 however she did not take any analgesia as she arrives without a fever. She does not have chills or bodyaches. No nausea or vomiting. She states her abdominal pain is resolved. Patient is on apixaban for catheter associated blood clots. Given patient complicated past medical history arrangements were initiated from the ED to have patient transferred to [facility] bed was however not available. Patient was therefore made to admit patient pending transfer. Of note patient has history of colon cancer almost 30 years ago for which she underwent colon resection with no chemo. [facility] Medical History Hypothyroidism PVCs (premature ventricular contractions) Colon cancer Endometrial cancer Home Medications ?Medication ?Instructions ?Recorded ?Last Taken ?Type docusate sodium 100 mg capsule 100 mg PO DAILY PRN Constipation 05/18/22 Unknown History (Colace) ezetimibe 10 mg tablet 10 mg PO DAILY 05/18/22 Unknown History thyroid (pork) 90 mg tablet (ASSOCIATE PRODUCT MANAGER 90 mg PO SUTUWEFRSA THYROID 05/18/22 Unknown History Thyroid) apixaban 5 mg tablet (Eliquis) 5 mg PO BID 06/19/24 Unknown History cholecalciferol (vitamin D3) 25 1,000 unit PO DAILY 06/19/24 Unknown History mcg (1,000 unit) chewable tablet (Vitamin D3) omeprazole 20 mg capsule,delayed 20 mg PO DAILY 06/19/24 Unknown History release potassium chloride 20 mEq 20 meq PO BID 06/19/24 Unknown History tablet,extended release(part/cryst) thyroid (pork) 60 mg tablet 60 mg PO MOTH thyroid 06/19/24 Unknown History ([place] Thyroid) Allergy/AdvReac Type Severity Reaction Status Date / Time azithromycin AdvReac Nausea/Vom/ Verified 06/19/24 07:23 Diarrhea [id number] Reductase AdvReac Other Verified 06/19/24 07:23 Inhibitor Social History Smoking Status: Never smoker ROS ROS Narrative GENERAL: denies fever, chills, night sweats, weight loss, anorexia HEENT: denies headache, sinus congestion, or drainage, dysphagia RESPIRATORY: denies cough, sputum production, shortness of breath, dyspnea on exertion CARDIAC: denies chest pain, palpitations, orthopnea, PND GASTROINTESTINAL: Hematochezia GENITOURINARY: denies dysuria, urgency, frequency, heamaturia EXTREMITY: denies swelling MUSCULOSKELETAL: denies current joint pain or tenderness NEUROLOGIC: denies focal numbness, weakness, tingling HEMATOLOGIC: denies easy bruising and/or hemorrhage INTEGUMENT: denies rashes PSYCHIATRIC: denies suicidal or homicidal ideation Review of Systems ROS Unobtainable: other Constitutional Constitutional: Denies fatigue, fever(s), poor appetite, weight gain or weight loss ENT HEENT: Denies mouth lesions Cardiovascular Cardiovascular: Denies abdominal bloating, abdominal edema or abdominal pain Respiratory/Chest Respiratory/Chest: Denies change in mental status, change in phlegm color, chest congestion or chest tightness Gastrointestinal Gastrointestinal: Denies belching, bloating, change in bowel habits, change in stool character, chewing difficulty, coffee ground emesis, constipation, cramping, diarrhea, dyspepsia, dysphagia, early satiety, excessive flatus, fecal incontinence, heartburn, hematemesis, hematochezia, hemorrhoids, loose stools, melena, nausea, odynophagia, rectal bleeding, tenesmus, vomiting or weight changes Genitourinary Genitourinary: Denies abdominal discomfort, burning urination or itching Musculoskeletal Musculoskeletal: Reports as per HPI; Denies muscle weakness or myalgias Integumentary Integumentary: Denies jaundice Neurologic Neurologic: Denies lack of coordination or weakness Psychiatric Psychiatric: Denies confusion, depression, memory loss, mood swings, paranoia or suicidal ideation Endocrine Endocrinology: Denies systems reviewed and no addt'l complaints, except as documented Hematologic/Lymphatic Hematologic/Lymphatic: Denies anemia, easy bleeding, easy bruising or lymphadenopathy Allergic/Immunologic Allergic/Immunologic: Denies systems reviewed and no addt'l complaints, except as documented Lab / Micro Data 06/20/24 06:09 06/20/24 06:09 Labs: Laboratory Results - last 24 hr 06/20/24 06:09: WBC 5.0, RBC 2.45 L, Hgb 8.4 L, Hct 24.9 L, MCV 101.6 H, MCH 34.3 H, MCHC 33.7, RDW Std Deviation 64.1 H, RDW Coeff of Beatrice 17.3 H, Plt Count 138 L, MPV 10.5, Immature Gran % (Auto) 0.600, Neut % (Auto) 73.3 H, Lymph % (Auto) 13.3 L, [place] % (Auto) 6.0, Eos % (Auto) 5.8 H, Baso % (Auto) 1.0, Absolute Neuts (auto) 3.7, Absolute Lymphs (auto) 0.67 L, Nucleated RBC % 0, Sodium 140, Potassium 3.1 L, Chloride 113 H, Carbon Dioxide 23.0, Anion Gap 4 L, BUN 8, Creatinine 0.79, Estim Creat Clear Calc 60.46, Est GFR (MDRD) Af Amer 93, Est GFR (MDRD) Non-Af 77, BUN/Creatinine Ratio 10.1, Glucose 97, Calcium 8.0 L, Phosphorus 2.5, Magnesium 1.7 Assessment & Plan Assessment/Plan (1) Lower GI bleed: PLAN: Plan Patient is a 68-year-old lady with history of endometrial cancer currently on chemo presented with bleeding per rectum Acute lower GI bleed CT scan of the abdomen pelvis: 1. Mass within the gastrohepatic region increased in size as compared to the prior CT. 2. Liver masses in the left lobe of the liver also increased as compared to the prior CT. 3. Diffuse thickening of small bowel and distal colon and diffuse mesenteric stranding which may represent enteritis/colitis. 4. No evidence of a gastrointestinal bleed. 5. Loculated right pleural effusion. 6. Left inguinal hernia containing small bowel with no bowel obstruction. 7. Splenomegaly ?Differential diagnosis for lower GI bleeding in the setting of inflammation in the small bowel and colon does likely represent enterocolitis. Differential diagnosis does include her Odette colitis, IBD induced colitis from chemotherapy, chemotherapy induced colitis, infectious colitis. Typically with chemotherapy you will get neutropenic enterocolitis. I do not think this is the case at this time. I would recommend stool studies. Recommend fecal calprotectin, stool lactoferrin, C. difficile, ova and parasites, CMV PCR in the stool due to immunosuppression. She may need biopsies to see if steroid therapy is recommended. At this time I would not do colonoscopy to evaluate her colon. Metastatic disease to the liver Charges/Coding Visit Charges Inpatient E&M: 76029 Init Hosp L3
[2024-06-20 22:00] VITALS: RESP 16
[2024-06-20 23:00] VITALS: BP 108/63; PULSE 90; RESP 16; TEMP 37; O2SAT 95
[2024-06-21] MEDS: 0.9% Normal Saline (1000mL) 1,000 ML 125 ML IV (04:50)
[2024-06-21 05:43] LABS: Absolute Lymphocyte Count 0.82 X10^3/uL (0.83-4.51); Absolute Neutrophil Count 3.1 X10^3/uL (2.0-7.7); Basophil# 0.05 X10^3/uL; Basophil% 1.1 % (0-1); Eosinophil# 0.26 X10^3/uL; Eosinophils% 5.6 % (0-5); Hematocrit 23.2 % (37-47); Hemoglobin 7.8 g/dL (12.0-15.0); Lymphocyte # 0.82 X10^3/ul (0.83-4.51); Lymphocyte % 17.6 % (19-41); Mean Corp Hgb Conc 33.6 g/dL (32-36); Mean Corpuscular Hgb 33.9 pg (27.0-32.0); Mean Corpuscular Volume 100.9 fL (81-99); Mean Platelet Vol. 10.5 fl (6.2-12.0); Monocyte# 0.43 X10^3/uL; Monocyte% 9.2 % (0-10); NRBC Flagged by Analyzer 0 % (0-5); Neutrophil # 3.08 X10^3/uL (2.7-7.7); Neutrophil % 65.9 % (47-70); Platelet Count 125 K/mm3 (150-450); RBC Distribution Width SD 63.3 fl (35.1-43.9); White Blood Count 4.7 K/mm3 (4.4-11.0)
[2024-06-21 06:47] LABS: Anion Gap 6 (5-15); BUN 6 mg/dL (7-18); BUN/Creat Ratio 7.6 RATIO (10-20); Calcium,Total 7.7 mg/dL (8.5-10.1); Chloride 115 mmol/L (98-107); Creatinine, Serum 0.79 mg/dL (0.55-1.02); EST Glomerular Filtration Rate 77 mL/min (>60); Est Glom Filt Rate - Afr Amer 93 mL/min (>60); Estimated Creatinine Clearance 60.46 ml/min; Glucose 100 mg/dL (74-106); Potassium 3.3 mmol/L (3.5-5.1); Sodium Level 142 mmol/L (136-145)
[2024-06-21 08:06] VITALS: BP 111/72; PULSE 77; RESP 14; TEMP 36.8; O2SAT 92
--- NOTE | 2024-06-21 08:15 | PN.HOSP_ITS ---
Reason for Visit Reason for Visit: Diagnoses Gastrointestinal hemorrhage, unspecified (06/19/24) Objective Data Objective Data Vital Signs: Vital Signs Temp Pulse Resp BP Pulse Ox O2 Del Method O2 Flow Rate 98.2 F 77 14 111/72 92 Room Air 2 06/21/24 08:06 06/21/24 08:06 06/21/24 08:06 06/21/24 08:06 06/21/24 08:06 06/21/24 08:06 06/21/24 04:00 Oxygen Flow Rate (L/min) 2 Oxygen Delivery Method Room Air Weight: 56.9 kg Body Mass Index (BMI) 20.8 Intake & Output: Intake and Output for Last 24 Hours 06/19/24 06/20/24 06/21/24 23:59 23:59 23:59 Intake Total 3407.08 / 3887.08 5315 / 5435 1240 / 1240 Output Total 1350 / 1350 1 / 3 2 / 2 Balance 2057.08 / 2537.08 5314 / 5432 1238 / 1238 Lab / Micro Data 06/21/24 05:11 06/21/24 05:11 Labs: Laboratory Results - last 24 hr 06/21/24 05:11: WBC 4.7, RBC 2.30 L, Hgb 7.8 L, Hct 23.2 L, MCV 100.9 H, MCH 33.9 H, MCHC 33.6, RDW Std Deviation 63.3 H, RDW Coeff of Beatrice 17.0 H, Plt Count 125 L, MPV 10.5, Immature Gran % (Auto) 0.600, Neut % (Auto) 65.9, Lymph % (Auto) 17.6 L, [place] % (Auto) 9.2, Eos % (Auto) 5.6 H, Baso % (Auto) 1.1 H, Absolute Neuts (auto) 3.1, Absolute Lymphs (auto) 0.82 L, Nucleated RBC % 0, Sodium 142, Potassium 3.3 L, Chloride 115 H, Carbon Dioxide 21.0, Anion Gap 6, B UN 6 L, Creatinine 0.79, Estim Creat Clear Calc 60.46, Est GFR (MDRD) Af Amer 93, Est GFR (MDRD) Non-Af 77, BUN/Creatinine Ratio 7.6 L, Glucose 100, Calcium 7.7 L Physical Exam Narrative GENERAL: cooperative HEENT: Atraumatic; normocephalic EYES; Anicteric, Normal Conjunctiva NECK; supple, normal thyroid, RESPIRATORY: Diminished to auscultation CARDIOVASCULAR: Regular S1 S2, GI: soft, normoactive bowel sounds, : No Renal angle tenderness; EXTREMITIES: No edema, no clubbing, MUSCULOSKELETAL: no muscle wasting NEURO: Awake; no lateralizing signs. SKIN: No Rash PSYCH; Flat affect Assessment & Plan Assessment/Plan (1) Lower GI bleed: PLAN: Plan Patient is a 68-year-old lady with history of endometrial cancer currently on chemo presented with bleeding per rectum 1. Acute lower GI bleed ? Secondary to colitis. Imaging studies obtained in the ED demonstrated Diffuse thickening of small bowel and distal colon and diffuse mesenteric stranding which may represent enteritis/colitis.. Arrangements were made in the ED for patient to be transferred to [facility]. Currently awaiting transfer pending bed availability. In the meantime patient is being monitored with serial H&H with plans to transfuse if patient meets criteria for transfusion ? 06/20/2024;Patient seen transferred to [facility] still pending her hemoglobin levels remain relatively stable. Consult subsequently placed to Dr. Valdes with GI 2. Endometrial CA ? Undergoing chemo patient is followed by Dr. Barksdale 3. Catheter associated DVT ? Patient is on apixaban currently being held given her presentation 4. Anemia ? Secondary to anemia of malignancy as well as acute blood loss anemia from patient's GI bleed. Monitoring H&H with plans to transfuse if patient is deemed to be symptomatic or hemoglobin falls below 7 ? 06/20/2024; hemoglobin remains relatively stable 5. Dyslipidemia ? Patient is on Zetia 6. Hypothyroidism ? Patient is on normal thyroid 7. Hypokalemia -Corrected per protocol, repeat labs ordered for monitoring 8. DVT prophylaxis ? Patient on apixaban which is currently being held given her presentation Time spent in the patient's overall evaluation,decision-making process, review of diagnostic data, adjustment of management, discussion with other providers, nursing nursing and ancillary staff involved in patient's care documentation, 38 minutes
[2024-06-21] MEDS: Cholecalciferol (VIT D3) 25 MCG TABLET (1,000 UNITS) PO (08:22)
[2024-06-21] MEDS: Pantoprazole Sodium 20 MG Tablet PO (08:22)
[2024-06-21] MEDS: Potassium Chloride Oral Tablet 20 MEQ PO (08:22)
[2024-06-21] MEDS: Ezetimibe 10 MG Tablet PO (08:22)
--- NOTE | 2024-06-21 11:01 | PCM.DC.SUM ---
Providers Date of Admission: 06/19/24 Date of Discharge: 06/21/24 Primary Care Physician: Dr. Pee Solorio MD Consultations 06/20/24 17:13 Consult: Gastroenterology Routine Consulting Provider: [facility] Reason for Consult: GI bleed EMERGENT Consult: No MD Notified: Yes Date Notified: 06/20/24 Time Notified: 17:13 Method of Notification: Text Reason For Visit: GI BLEED Diagnosis Discharge Diagnosis (1) Lower GI bleed: Status: Acute Code(s): K92.2 - Gastrointestinal hemorrhage, unspecified Plan Patient is a 68-year-old lady with history of endometrial cancer currently on chemo presented with bleeding per rectum 1. Acute lower GI bleed ? Secondary to colitis. Imaging studies obtained in the ED demonstrated Diffuse thickening of small bowel and distal colon and diffuse mesenteric stranding which may represent enteritis/colitis.. Arrangements were made in the ED for patient to be transferred to [facility]. Currently awaiting transfer pending bed availability. In the meantime patient is being monitored with serial H&H with plans to transfuse if patient meets criteria for transfusion ? 06/20/2024;Patient seen transferred to [facility] still pending her hemoglobin levels remain relatively stable. Consult subsequently placed to Dr. Valdes with GI ? 06/21/2024. Plan was for patient to have been discharged to [facility] however with patient's symptoms have not improved and with recommendations from GI decision was made to discharge patient home on Cipro and Flagyl. 2. Endometrial CA ? Undergoing chemo patient is followed by Dr. Barksdale 3. Catheter associated DVT ? Patient is on apixaban currently being held given her presentation ? 06/21/2024. Patient apixaban was held for a week instructed to follow-up with Dr. Isabel prior to resumption 4. Anemia ? Secondary to anemia of malignancy as well as acute blood loss anemia from patient's GI bleed. Monitoring H&H with plans to transfuse if patient is deemed to be symptomatic or hemoglobin falls below 7 ? 06/20/2024; hemoglobin remains relatively stable 5. Dyslipidemia ? Patient is on Zetia 6. Hypothyroidism ? Patient is on normal thyroid 7. Hypokalemia -Corrected per protocol, repeat labs ordered for monitoring 8. DVT prophylaxis ? Patient on apixaban which is currently being held given her presentation Time spent in the patient's overall evaluation,decision-making process, review of diagnostic data, adjustment of management, discussion with other providers, nursing nursing and ancillary staff involved in patient's care documentation, 38 minutes Medications at Discharge Home Medications docusate sodium 100 mg capsule (Colace) 100 mg PO DAILY PRN Constipation 05/18/22 ezetimibe 10 mg tablet 10 mg PO DAILY 05/18/22 thyroid (pork) 90 mg tablet (CUSTOMER SALES REPRESENTATIVE Thyroid) 90 mg PO SUTUWEFRSA THYROID 05/18/22 apixaban 5 mg tablet (Eliquis) 5 mg PO BID 06/19/24 cholecalciferol (vitamin D3) 25 mcg (1,000 unit) chewable tablet (Vitamin D3) 1,000 unit PO DAILY 06/19/24 omeprazole 20 mg capsule,delayed release 20 mg PO DAILY 06/19/24 potassium chloride 20 mEq tablet,extended release(part/cryst) 20 meq PO BID 06/19/24 thyroid (pork) 60 mg tablet ([place] Thyroid) 60 mg PO MOTH thyroid 06/19/24 ciprofloxacin HCl 500 mg tablet (Cipro) 500 mg PO BID #14 tabs 06/21/24 metronidazole 500 mg tablet 500 mg PO Q8H 7 days #21 tabs 06/21/24 Physical Exam Narrative GENERAL: cooperative HEENT: Atraumatic; normocephalic EYES; Anicteric, Normal Conjunctiva NECK; supple, normal thyroid, RESPIRATORY: Diminished to auscultation CARDIOVASCULAR: Regular S1 S2, GI: soft, normoactive bowel sounds, : No Renal angle tenderness; EXTREMITIES: No edema, no clubbing, MUSCULOSKELETAL: no muscle wasting NEURO: Awake; no lateralizing signs. SKIN: No Rash PSYCH; Flat affect Weight / BMI Weight Weight: 56.9 kg Body Mass Index (BMI) 20.8 ABG / Lab / Microbiology Data 06/21/24 05:11 06/21/24 05:11 Laboratory: Laboratory Results - last 24 hr 06/21/24 05:11: WBC 4.7, RBC 2.30 L, Hgb 7.8 L, Hct 23.2 L, MCV 100.9 H, MCH 33.9 H, MCHC 33.6, RDW Std Deviation 63.3 H, RDW Coeff of Beatrice 17.0 H, Plt Count 125 L, MPV 10.5, Immature Gran % (Auto) 0.600, Neut % (Auto) 65.9, Lymph % (Auto) 17.6 L, [place] % (Auto) 9.2, Eos % (Auto) 5.6 H, Baso % (Auto) 1.1 H, Absolute Neuts (auto) 3.1, Absolute Lymphs (auto) 0.82 L, Nucleated RBC % 0, Sodium 142, Potassium 3.3 L, Chloride 115 H, Carbon Dioxide 21.0, Anion Gap 6, BUN 6 L, Creatinine 0.79, Estim Creat Clear Calc 60.46, Est GFR (MDRD) Af Amer 93, Est GFR (MDRD) Non-Af 77, BUN/Creatinine Ratio 7.6 L, Glucose 100, Calcium 7.7 L Meaningful Use Info Meaningful Use Meaningful Use Diagnoses (Choose all that apply): None applicable Ischemic Stroke Statin Dosing Therapy Reference: STATIN DOSE THERAPY REFERENCE: * Patients > 75 years receive moderate or high dose statin therapy. * Patients 75 years or YOUNGER should receive HIGH intensity statin dose unless contraindicated. You will be required to document reason for non-treatment if statin daily dose does not meet guidelines. HIGH DOSE STATIN THERAPY DAILY Atorvastatin > than or = to 40 mg Rosuvastatin > than or = to 20 mg Amlodipine + Atorvastatin > than or = to 2.5/40 mg Ezetimibe + Simvastatin 10/80 mg Simvastatin 80mg Discharge Plan Admission Admit Date/Time: 06/19/24 07:03 Attending Provider: Alexis Addison Primary Care Provider: Pee Solorio Discharge Orders/Prescriptions Prescriptions: New ciprofloxacin HCl [Cipro] 500 mg tablet 500 mg PO BID Qty: 14 0RF metronidazole 500 mg tablet 500 mg PO Q8H 7 Days Qty: 21 0RF Continued docusate sodium [Colace] 100 mg Capsule 100 mg PO DAILY PRN (Reason: Constipation) ezetimibe 10 mg Tablet 10 mg PO DAILY thyroid (pork) [CUSTOMER SALES REPRESENTATIVE Thyroid] 90 mg Tablet 90 mg PO SUTUWEFRSA omeprazole 20 mg capsule,delayed release(DR/EC) 20 mg PO DAILY thyroid (pork) [[place]ale Thyroid] 60 mg tablet 60 mg PO MOTH potassium chloride 20 mEq tablet,ER particles/crystals 20 meq PO BID cholecalciferol (vitamin D3) [Vitamin D3] 25 mcg (1,000 unit) tablet,chewable 1,000 unit PO DAILY Held Eliquis 5 mg tablet 5 mg PO BID Hold Instructions: Resume on 06/28/24. Referrals / Follow Up: Jame Vigil DO [Med Staff - Active Staff] - Within 1 Week Drake Valdes DO [Med Staff - Active Staff] - Within 2 Weeks Pee Solorio MD [Primary Care Provider] - Within 1 Week Disposition Disposition (needs filled in before D/C Order can be placed): Home, Self Care Charges/Coding Visit Charges Inpatient E&M: 79355 Disch Hosp >30min
[2024-06-21] MEDS: Potassium Chloride Oral Tablet 20 MEQ 40 MEQ PO (11:29)
--- NOTE | 2024-06-21 11:42 | PHA.DC_ITS ---
Pharmacy [facility] has performed discharge medication reconciliation and counseling for this patient. The patient's discharge medication list was reviewed for discrepancies and discrepancies were resolved. The patient was counseled on the following discharge medications and changes in medications for homegoing were reviewed. 1. CIPRO 2. FLAGYL 3. ELIQUIS --> HOLD AND RESUME MED ON 06/28/24 The Reason for Use, instructions for use, and potential side effects were reviewed for all new medications. The patient's questions regarding all of their medications were answered. The patient was able to verbally demonstrate an understanding of their discharge medications. The patient was counselled by Sandvoal Caba PharmD Candidate Medications at Discharge Home Medications docusate sodium 100 mg capsule (Colace) 100 mg PO DAILY PRN Constipation 05/18/22 ezetimibe 10 mg tablet 10 mg PO DAILY 05/18/22 thyroid (pork) 90 mg tablet (AGRICULTURE INTERN Thyroid) 90 mg PO SUTUWEFRSA THYROID 05/18/22 apixaban 5 mg tablet (Eliquis) 5 mg PO BID 06/19/24 cholecalciferol (vitamin D3) 25 mcg (1,000 unit) chewable tablet (Vitamin D3) 1,000 unit PO DAILY 06/19/24 omeprazole 20 mg capsule,delayed release 20 mg PO DAILY 06/19/24 potassium chloride 20 mEq tablet,extended release(part/cryst) 20 meq PO BID 06/19/24 thyroid (pork) 60 mg tablet ([place] Thyroid) 60 mg PO MOTH thyroid 06/19/24 ciprofloxacin HCl 500 mg tablet (Cipro) 500 mg PO BID #14 tabs 06/21/24 metronidazole 500 mg tablet 500 mg PO Q8H 7 days #21 tabs 06/21/24
--- NOTE | 2024-06-21 11:52 | CASEMGMT ---
MARY COOK Assessment Per the MD, the pt not requiring transfer to [facility] at this time and will be discharging home today (most likely). Face to Face with patient for initial transition planning/care coordination assessment. MARY COOK introduced self and role at [facility], pt voices understanding. Pt is A&Ox4 and is resting comfortably in bed and is calm. Care providers, pharmacy, and demographics verified. Admitting dx: GI Bleed PCP: Pee Valladares Specialists: Musa (Pedro/Onc), Naresh (GI) Preferred Pharmacy: [facility] Retail Insurance: [facility] Prescription Benefit: Yes LNOK: Chris Sue (H) Living Arrangements: Pt lives with her in a single story home with one step to enter ADLs/IADLs: Ind Transportation: Self, DME: Pt states that her mother recently . Pt states that she commandeered the following DME but does not use: W/C, Hospital bed, shower seat, FWW. HHC/SNF: Hx of HHC x3 years ago but cannot recall the name of the agency. Denies SNF history or needs Pt?s goal: Home Plan: Home no needs. 6-Click is 24. Pt has a pending stool sample and will most likely DC home today if this comes back (-). Pt denies the need for HHC, OP Tx, SNF, or CCN. Pt states that she feels safe discharging home with her once she is medically ready and denies further questions or concerns. Report handed off to COMPOSITE SCIENCE TEACHERMARY Grider RN, CM
[2024-06-21] MEDS: 0.9% Saline Lock 10 ML Syringe IV (12:48)
[2024-06-21 14:12] VITALS: BP 111/72; PULSE 81; RESP 16; TEMP 36.6; O2SAT 95
== END 2024-06-21 17:12 | disposition home or self-care (01) | DRG 392 ==
LOC: ED 21:56 → PCU 06-19 07:46
PROVIDERS: Admitting Provider Internal Medicine; Emergency Provider Student in an Organized Health Care Education/Training Program; PCP Internal Medicine; Visit Provider Internal Medicine
DX: K52.9 Noninfective gastroenteritis and colitis, unspecified (principal); C78.89 Secondary malignant neoplasm of other digestive organs; D68.32 Hemorrhagic disorder due to extrinsic circulating anticoagulants; D62 Acute posthemorrhagic anemia; C78.7 Secondary malignant neoplasm of liver and intrahepatic bile duct; D63.0 Anemia in neoplastic disease; C54.1 Malignant neoplasm of endometrium; E03.9 Hypothyroidism, unspecified; E87.6 Hypokalemia; E78.5 Hyperlipidemia, unspecified; T45.515A Adverse effect of anticoagulants, initial encounter; R50.9 Fever, unspecified; Z79.01 Long term (current) use of anticoagulants; Z79.899 Other long term (current) drug therapy
CPT/HCPCS: 36415; 36591; 74177; 80048; 80076; 81001; 83690; 83735; 84100; 85025; 99285; J7030; Q9967; A4216

== ENCOUNTER → 2024-06-24 | Outpatient (CLI) | payer MEDICARE, SELFPAY ==
[2024-06-26 13:08] LABS: Giardia Lamblia, Stool EIA Negative (Negative); Pancreatic Elastase, Fecal > 800 (>200)
[2024-06-26 16:09] LABS: Calprotectin, Stool 149 ug/g (0-120)
== END | disposition home or self-care (01) ==
LOC: LABSPEC 07:49
PROVIDERS: PCP Internal Medicine; Referring Provider Internal Medicine Gastroenterology; Visit Provider Internal Medicine Gastroenterology
DX: K92.2 Gastrointestinal hemorrhage, unspecified (principal); K58.9 Irritable bowel syndrome, unspecified
CPT/HCPCS: 82653; 83630; 83993; 87329; 87493